=== PATIENT | female | born 1965 | race Caucasian/White ===

== ENCOUNTER 2016-09-19 06:12 | Day surgery (SDC) | payer BC ==
[~2016-09-19 06:12] MED LIST: C1 PO; CLOBETASOL0.051 TOP; COUMADIN3 MG PO; CYMBALTA30 PO; CYMBALTA60 PO; D 5000 PO; LISINOPRIL40 MG PO; LOVENOX80 SC; MICROZIDE PO; NEUR300 PO; NEUR800 PO; PRILOSEC40 MG PO; PRIN20 PO; PROBBIOTIC PO; TEARS NATURA OPH; TUMERIC OTC PO; VITAMIN B-121000 MC1 SL; VITC500 PO; VITE PO; XANAX2 MG PO
[2016-09-19 06:35] LABS: PROTIME (NOT ORD) 22.1 SEC (12.0-14.5)
== END 2016-09-19 23:59 | disposition home or self-care (01) ==
LOC: DMU 06:12
PROVIDERS: Anesthesiology
DX: K21.9 Gastro-esophageal reflux disease without esophagitis (principal); Z88.8 Allergy status to other drugs, medicaments and biological substances; Z86.711 Personal history of pulmonary embolism; Z90.49 Acquired absence of other specified parts of digestive tract; Z90.710 Acquired absence of both cervix and uterus; Z98.890 Other specified postprocedural states; Z86.718 Personal history of other venous thrombosis and embolism; Z80.1 Family history of malignant neoplasm of trachea, bronchus and lung; Z79.899 Other long term (current) drug therapy; Z79.01 Long term (current) use of anticoagulants; Z79.52 Long term (current) use of systemic steroids; Z53.9 Procedure and treatment not carried out, unspecified reason
CPT/HCPCS: 85610

== ENCOUNTER 2016-11-14 07:30 | Day surgery (SDC) | payer BC ==
--- NOTE | ~2016-11-14 | EGD ---
EGD REPORT [facility] [address] [place] [address] NAME: SARA PEDERSEN : 69 STATUS : REG [facility] PAT#: [id number] AGE: 51 ADM/REG DATE : 11/14/16 MR#: [id number] REPORT SERV DATE: 11/14/16 DICTATED BY: LATESHA JOHNSON DATE: 11/14/16 REPORT STATUS : Draft TRANS[facility]IBED BY: [facility] DATE: 11/14/16 [facility] Patient Name: Sara Pedersen Date of : 1965 Attending MD: LATESHA JOHNSON, Procedure Date No Time: 11/14/2016 Procedure: Upper GI endoscopy Indications: Abdominal pain, Dysphagia, Early satiety Referring MD: DONIS CHOUDHURY MD Medicines: Propofol per Anesthesia Complications: No immediate complications. Estimated blood loss: None. Procedure: Pre-Anesthesia Assessment: - ASA Grade Assessment: III - A patient with severe systemic disease. After obtaining informed consent, the endoscope was passed under direct vision. Throughout the procedure, the patient's blood pressure, pulse, and oxygen saturations were monitored continuously. The GIF [id number] was introduced through the mouth, and advanced to the second part of duodenum. The upper GI endoscopy was accomplished with ease. The patient tolerated the procedure well. Findings: No endoscopic abnormality was evident in the esophagus to explain the patient's complaint of dysphagia. The Z-line was found 40 cm from the incisors. A medium amount of food (residue) was found in the gastric fundus and in the gastric body. Food (residue) was found in the duodenal bulb. The duodenal bulb and 2nd part of the duodenum were normal. Impression: - No endoscopic esophageal abnormality to explain patient's dysphagia. - Z-line 40 cm from the incisors. - A medium amount of food (residue) in the stomach. - Retained food in the duodenum. - Normal duodenal bulb and 2nd part of the duodenum. Recommendation: - Patient has a contact number available for emergencies. The signs and symptoms of potential delayed complications were discussed with the patient. Return to normal activities tomorrow. Written discharge instructions were provided to the patient. - Discharge patient to home (with escort). EGD REPORT [address] [place]. [address] NAME: SARA PEEDRSEN : [birth year] STATUS : REG [facility] PAT#: [id number] AGE: 51 ADM/REG DATE : 11/14/16 MR#: [id number] REPORT SERV DATE: 11/14/16 DICTATED BY: LATESHA JOHNSON DATE: 11/14/16 REPORT STATUS : Draft TRANSCRIBED BY: [employer] DATE: 11/14/16 - Low residue diet. - Follow an antireflux regimen. - Perform routine esophageal manometry at appointment to be scheduled. - Do a gastric emptying study at appointment to be scheduled. - Continue present medications. - Return to GI clinic in 4 weeks. Procedure Code(s): --- Professional --- 92782, Esophagogastroduodenoscopy, flexible, transoral; diagnostic, including collection of specimen(s) by brushing or washing, when performed (separate procedure) Diagnosis Code(s): --- Professional --- R13.10, Dysphagia, unspecified R10.9, Unspecified abdominal pain R68.81, Early satiety CPT copyright 2013 [employer]. All rights reserved. The codes documented in this report are preliminary and upon java engineer review may be revised to meet current compliance requirements. LATESHA JOHNSON, 11/14/2016 10:00 AM This report has been signed electronically. Number of Addenda: 0 Note Initiated On: 11/14/2016 9:26 AM Scope Withdrawal Time 0 hours 0 minutes 0 seconds [id number] [place] [id number]
[2016-11-14 08:26] LABS: INTERNATIONAL NORMAL RATI 0.9 UNITS (-)
[2016-11-14 08:28] LABS: PROTIME (NOT ORD) 11.6 SEC (12.0-14.5)
== END 2016-11-14 23:59 | disposition home or self-care (01) ==
LOC: DMU 07:30
PROVIDERS: Anesthesiology; Internal Medicine Gastroenterology
PROC: 0DJ08ZZ Inspection of Upper Intestinal Tract, Via Natural or Artificial Opening Endoscopic (ICD-10-PCS; principal; 2016-11-14 09:00)
DX: R13.10 Dysphagia, unspecified (principal); R10.9 Unspecified abdominal pain; R68.81 Early satiety; D68.51 Activated protein C resistance; F41.9 Anxiety disorder, unspecified; K21.9 Gastro-esophageal reflux disease without esophagitis; K57.90 Diverticulosis of intestine, part unspecified, without perforation or abscess without bleeding; G89.29 Other chronic pain; M54.9 Dorsalgia, unspecified; G57.93 Unspecified mononeuropathy of bilateral lower limbs; I10 Essential (primary) hypertension; I82.403 Acute embolism and thrombosis of unspecified deep veins of lower extremity, bilateral; Z79.01 Long term (current) use of anticoagulants; Z90.49 Acquired absence of other specified parts of digestive tract; Z90.710 Acquired absence of both cervix and uterus; Z86.711 Personal history of pulmonary embolism; Z88.8 Allergy status to other drugs, medicaments and biological substances; Z79.899 Other long term (current) drug therapy; M79.601 Pain in right arm; M25.511 Pain in right shoulder; E86.0 Dehydration; E66.9 Obesity, unspecified; F32.9 Major depressive disorder, single episode, unspecified
CPT/HCPCS: 71010; 71275; 72170; 73030-RT; 80048; 83735; 84484; 85025; 85610; 85730; 93005; 96372; 96374; 96375; 99284; A9270-GY; J1170; J2550; Q9967

== ENCOUNTER 2016-11-14 11:47 | Emergency (ER) | payer BC ==
[2016-11-14 12:28] LABS: BASOPHILS 0.1 %; BASOPHILS ABSOLUTE 0.02 10/3/uL (0.0-0.16); EOSINOPHILS 0.8 %; EOSINOPHILS ABSOLUTE 0.13 10/3/uL (0.0-0.53); HEMATOCRIT 35.1 % (36.0-48.0); HEMOGLOBIN 11.7 g/dL (12.0-16.0); IMMATURE GRANULOCYTES 0.5 %; IMMATURE GRANULOCYTES ABSOLUTE 0.08 10/3/uL (0.0-0.11); LYMPHOCYTES 19.5 %; LYMPHOCYTES ABSOLUTE 2.99 10/3/uL (0.67-4.30); MANUAL DIFF NO %; MEAN CORPUS HGB CONC 33.3 g/dL (32.0-36.0); MEAN CORPUSCULAR HEMOGLOB 30.1 pg (26.0-34.0); MEAN CORPUSCULAR VOLUME 90.2 fL (80-100); MEAN PLATELET VOLUME 11.5 fL (9.2-13.0); MONOCYTES 4.9 %; MONOCYTES ABSOLUTE 0.75 10/3/uL (0.21-1.20); NEUTROPHILS 74.2 %; NEUTROPHILS ABSOLUTE 11.33 10/3/uL (2.02-8.40); PLATELET COUNT 239 10/3/uL (150-400); RBC DISTRIBUTION WIDTH 14.1 % (12.0-16.0); RED CELL COUNT 3.89 10/6/uL (4.0-5.6); WHITE BLOOD CELLS 15.3 10/3/uL (4.5-10.5)
[2016-11-14 12:35] LABS: INTERNATIONAL NORMAL RATI 1.1 UNITS (-); PARTIAL THROMBO TIME 25.9 SEC (22.5-37.2)
[2016-11-14 12:43] LABS: BUN (BLOOD UREA NITROGEN) 17 MG/DL (6-23); CALCIUM, SERUM 9.3 MG/DL (8.5-10.4); CHEST PAIN PROFILE TAT 0 Hrs 19 Mins; CHLORIDE, SERUM 110 MMOL/L (96-112); CREATININE 1.17 MG/DL (0.55-1.02); GFR AFRICAN AMERICAN 63 ML/MIN (>=60); GFR NON AFRICAN AMERICAN 55 ML/MIN (>=60); GLUCOSE, SERUM 132 MG/DL (60-99); SODIUM, SERUM 141 MMOL/L (135-148); TROPONIN I <0.02 NG/ML (<0.05)
[2016-11-14 12:44] LABS: CO2 (CARBON DIOXIDE) 22 MMOL/L (24-34); POTASSIUM, SERUM 4.6 MMOL/L (3.5-5.3)
== END 2016-11-14 16:57 | disposition home or self-care (01) ==
LOC: ER 11:47
PROVIDERS: Hospitalist
DX: M25.511 Pain in right shoulder (principal); M79.601 Pain in right arm; I10 Essential (primary) hypertension; F41.9 Anxiety disorder, unspecified; E86.0 Dehydration; E66.9 Obesity, unspecified; F32.9 Major depressive disorder, single episode, unspecified; Z88.8 Allergy status to other drugs, medicaments and biological substances; Z79.01 Long term (current) use of anticoagulants; Z79.899 Other long term (current) drug therapy
CPT/HCPCS: 71010; 71275; 72170; 73030-RT; 80048; 83735; 84484; 85025; 85610; 85730; 93005; 96372; 96374; 96375; 99284; A9270-GY; Q9967